=== PATIENT | male | born 1960 | race Caucasian/White ===

== ENCOUNTER 2024-02-22 17:38 | Inpatient (IN) | payer MEDICAID, OTHER ==
[~2024-02-22] VITALS: Ht 172.7 cm; Wt 63.5 kg
[2024-02-22 17:45] VITALS: O2SAT 93
[2024-02-22] MEDS: SODIUM CHLORIDE 0.9% 1,000 ML IV ONE (19:07)
[2024-02-22 19:26] LABS: HEMATOCRIT. 23.5 % (42.0-52.0); HEMOGLOBIN. 7.2 g/dL (14.0-18.0); MEAN CORPUSCULAR HEMOGLOBIN 21.2 pg (28.0-32.0); MEAN CORPUSCULAR HGB CONC 30.6 g/dL (31.0-37.0); MEAN CORPUSCULAR VOLUME 69.2 fL (80.0-94.0); MEAN PLATELET VOLUME 6.7 fl (7.4-10.4); PLATELET 353 x1000/uL (130-400); RED BLOOD CELL COUNT 3.39 mill/uL (4.7-6.1); RED CELL DISTRIBUTION WIDTH 19.8 % (11.6-14.6); WHITE BLOOD COUNT 5.7 x1000/uL (4.5-11.0)
[2024-02-22 19:29] LABS: DIFFERENTIAL COMMENT 1
[2024-02-22 19:34] LABS: CHLORIDE 105 mEq/L (98-107); POTASSIUM 4.1 mEq/L (3.5-5.1); SODIUM 135 mEq/L (136-145)
[2024-02-22 19:35] LABS: CALCIUM 8.5 mg/dL (8.7-10.4); CARBON DIOXIDE 26 mEq/L (21-32)
[2024-02-22 19:40] LABS: CREATININE 0.8 mg/dL (0.6-1.3); GLUCOSE 88 mg/dL (70-105); UREA NITROGEN BLOOD 19 mg/dL (9-23)
[2024-02-22 19:57] LABS: ETHANOL BLOOD < 10 mg/dL (<10)
[2024-02-22 22:28] LABS: HYPOCHROMASIA 1+; MICROCYTOSIS 1+; PLATELET ESTIMATE NORMAL
[2024-02-23] MEDS ORDERED: KETOROLAC 15MG/ML VIAL IV PRN (08:30)
[2024-02-23] MEDS ORDERED: NITROGLYCERIN 0.4MG TABLET SL SL PRN (08:30)
[2024-02-23] MEDS: ASPIRIN 325MG EC TABLET PO SCH (09:00)
[2024-02-23] MEDS: PANTOPRAZOLE SODIUM 40 MG/VIAL IV SCH (09:00)
[2024-02-23 09:24] LABS: IRON 37 ug/dL (65-175)
[2024-02-23 09:27] LABS: TOTAL IRON BINDING CAPACITY 381 ug/dl (250-425)
[2024-02-23 09:30] LABS: FOLIC ACID (FOLATE) SERUM > 20.00 ng/mL (>5.38); VITAMIN B12 SERUM 283 pg/mL (211-911)
[2024-02-23 09:31] LABS: THYROID STIMULATING HORMONE 0.82 uIU/mL (0.55-4.78)
[2024-02-23] MEDS: FOLIC ACID 1 MG, THIAMINE HCL 100 MG, MVI, ADULT NO.1 10 ML in DEXTROSE 5% WATER 1,000 ML IV ONE (10:15)
[2024-02-23] MEDS ORDERED: CLONIDINE 0.1MG TABLET PO PRN (14:00)
[2024-02-23] MEDS ORDERED: GUAIFENESIN 200MG/10ML SUGAR FREE UDC PO PRN (14:00)
[2024-02-23] MEDS ORDERED: DOCUSATE SODIUM 100MG CAPSULE PO PRN (14:00)
[2024-02-23] MEDS ORDERED: IPRATROPIUM/ALBUTEROL 0.5-3(2.5)MG/3ML NEB NEB PRN (14:00)
[2024-02-23] MEDS ORDERED: MAGNESIUM/ALUMINUM HYDROXIDE/SIMETHICONE 30ML UDC PO PRN (14:00)
[2024-02-23] MEDS ORDERED: ACETAMINOPHEN 325MG TABLET PO PRN ×2 (14:00)
[2024-02-23] MEDS ORDERED: ONDANSETRON HCL 4MG/2ML INJ IV PRN (14:00)
[2024-02-23 14:26] VITALS: BP 116/80; PULSE 61; RESP 20; TEMP 36.1956
[2024-02-23] MEDS: DEXT 5%/LACTATED RINGERS 1,000 ML IV SCH (16:04)
[2024-02-23] MEDS: ENOXAPARIN 40MG/0.4ML SYR SUBCUT SCH (16:05)
[2024-02-23 16:21] VITALS: BP 137/77; PULSE 51; RESP 19; TEMP 36.28068; O2SAT 97
[2024-02-23 18:28] LABS: CLARITY URINE CLEAR (CLEAR); COLOR URINE YELLOW (YELLOW); GLUCOSE URINE NEGATIVE (NEGATIVE); KETONES URINE NEGATIVE (NEGATIVE); LEUKOCYTE ESTERASE URINE NEGATIVE (NEGATIVE); NITRITE URINE NEGATIVE (NEGATIVE); OCCULT BLOOD URINE 1+ (NEGATIVE); PH URINE 6.5 (4.5-8.0); PROTEIN URINE NEGATIVE (NEGATIVE); SPECIFIC GRAVITY URINE 1.006 (1.005-1.030)
[2024-02-23 18:38] LABS: *AMPHETAMINES SCREEN URINE PRESUMPTIVE POSITIVE (NEGATIVE); *BARBITURATES SCREEN URINE NEGATIVE (NEGATIVE); *BENZODIAZEPINES SCREEN URINE NEGATIVE (NEGATIVE); *COCAINE SCREEN URINE NEGATIVE (NEGATIVE); CANNABINOID URINE SCREEN PRESUMPTIVE POSITIVE (NEGATIVE); ECSTASY MDMA SCREEN URINE NEGATIVE (NEGATIVE); METHADONE URINE SCREEN NEGATIVE (NEGATIVE); OPIATES URINE SCREEN NEGATIVE (NEGATIVE); PHENCYCLIDINE URINE SCREEN NEGATIVE (NEGATIVE)
[2024-02-23 18:59] LABS: BACTERIA URINE TRACE; RBC URINE 0-2 /hpf (0-2); SQUAMOUS EPITHELIAL CELL URINE FEW /lpf (RARE/1+)
[2024-02-23 19:00] LABS: WBC URINE NONE SEEN /hpf (0-2)
[2024-02-23 20:00] VITALS: BP 108/69; PULSE 64; RESP 17; TEMP 36.22512; O2SAT 99
[2024-02-24] VITALS: BP 131/66; PULSE 63; RESP 17; TEMP 36.55848; O2SAT 98
[2024-02-24 04:00] VITALS: BP 147/75; PULSE 58; RESP 18; TEMP 36.22512; O2SAT 98
[2024-02-24 06:33] LABS: CHLORIDE 104 mEq/L (98-107); SODIUM 136 mEq/L (136-145)
[2024-02-24 06:34] LABS: CALCIUM 8.3 mg/dL (8.7-10.4); CARBON DIOXIDE 27 mEq/L (21-32)
[2024-02-24 06:39] LABS: CREATININE 0.8 mg/dL (0.6-1.3); GLUCOSE 62 mg/dL (70-105); UREA NITROGEN BLOOD 16 mg/dL (9-23)
[2024-02-24 06:41] LABS: ALANINE AMINOTRANSFERASE 23 IU/L (10-49); ALBUMIN 3.5 g/dL (3.2-4.8); ASPARTATE AMINOTRANSFERASE 41 IU/L (<34); BILIRUBIN TOTAL 0.5 mg/dL (0.1-1.0); CREATINE KINASE MB FRACTION 4.3 ng/mL (0.5-3.6); PHOSPHORUS 3.9 mg/dL (2.5-4.9); PROTEIN TOTAL 6.3 g/dL (6.0-8.3)
[2024-02-24 06:54] LABS: HEMATOCRIT. 27.4 % (42.0-52.0); HEMOGLOBIN. 8.2 g/dL (14.0-18.0); MEAN CORPUSCULAR HEMOGLOBIN 21.1 pg (28.0-32.0); MEAN CORPUSCULAR VOLUME 70.3 fL (80.0-94.0); MEAN PLATELET VOLUME 7.1 fl (7.4-10.4); PLATELET 363 x1000/uL (130-400); WHITE BLOOD COUNT 5.6 x1000/uL (4.5-11.0)
[2024-02-24 07:19] LABS: DIFFERENTIAL COMMENT 1
[2024-02-24 08:00] VITALS: BP 147/85; PULSE 88; RESP 20; TEMP 36.55848; O2SAT 98
[2024-02-24 12:00] VITALS: BP 135/79; PULSE 79; RESP 20; TEMP 36.3918; TEMP 36.39180; O2SAT 98
[2024-02-24 14:31] LABS: ANISOCYTOSIS 2+; HYPOCHROMASIA 1+; MICROCYTOSIS 2+; PLATELET ESTIMATE NORMAL
[2024-02-24 14:51] VITALS: BP 122/68; PULSE 71; TEMP 98
[2024-02-25] MEDS ORDERED: FAMOTIDINE 20MG/2ML VIAL IV SCH (09:00)
== END 2024-02-24 17:12 | disposition home or self-care (01) | DRG 426 ==
LOC: EDBD 17:38 → ER 17:38 → 5WST 02-23 06:43 → 8WST 02-23 14:04
PROVIDERS: ADMIT Internal Medicine; ATTEND Internal Medicine
DX: E87.1 Hypo-osmolality and hyponatremia (principal); G92.8 Other toxic encephalopathy; E83.51 Hypocalcemia; D64.9 Anemia, unspecified; F10.129 Alcohol abuse with intoxication, unspecified; F19.10 Other psychoactive substance abuse, uncomplicated; Y90.0 Blood alcohol level of less than 20 mg/100 ml; Z86.73 Personal history of transient ischemic attack (TIA), and cerebral infarction without residual deficits; Z79.899 Other long term (current) drug therapy
CPT/HCPCS: 36415; 80048; 80053; 80305; 80320; 81003; 82550; 82553; 82607; 82746; 82962; 83036; 83540; 83550; 83605; 83735; 84100; 84145; 84443; 84484; 85025; 93970; 99285; J1650; J2470; J3411; J3490; J7030; J7070; G0480